=== PATIENT | female | born 2000 | race Caucasian/White ===

== ENCOUNTER 2022-07-09 08:44 | Emergency (ER) | payer OTHER, SELFPAY ==
--- NOTE | 2022-07-09 08:48 | ED.URI ---
HPI - URI/Sore Throat General Stated Complaint: Sore throat Time Seen by Provider: 07/09/22 08:49 Source: patient and RN notes reviewed History of Present Illness HPI Narrative: Patient is a 22-year-old female presents the urgent care with complaints of a sore/scratchy throat that started on . Patient states he got worse last night. Denies of any fever, chills, nausea, vomiting or exposures. Patient states has been taking Merry. No other acute complaints. No acute distress noted. Patient aware of the plan of care. Some parts of this dictation were generated by voice recognition software and may contain typographical and/or grammatical inaccuracies. Related Data Home Medications Medication Instructions Recorded Confirmed No Home Medications 07/09/22 07/09/22 Allergies Allergy/AdvReac Type Severity Reaction Status Date / Time No Known Allergies Allergy Verified 07/09/22 09:01 Review of Systems Review of Systems: CONSTITUTIONAL: Denies fever, chills, or sweats. EYES: Denies visual changes, redness, or discharge. ENT: Denies rhinorrhea, congestion, otalgia. Reports of sore throat CARDIOVASCULAR: Denies chest pain, palpitations, or edema. RESPIRATORY: Denies cough or dyspnea. GASTROINTESTINAL: Denies abdominal pain, nausea, vomiting, or diarrhea. GENITOURINARY: Denies dysuria or hematuria. SKIN: Denies rash or itching. MUSCULOSKELETAL: Denies back pain, joint pain, or myalgia. NEUROLOGIC: Denies headache, numbness, or weakness. All other systems reviewed are negative, except as documented in HPI. PMFSH Comments At the time of my signature, I reviewed and agree with the nursing past medical, surgical, social, and family history. There is no relevant family history pertinent to the patient complaint. Exam Narrative: GENERAL: This is a well-nourished, well-developed patient, in no apparent distress. HEAD: normocephalic, atraumatic. EYES: PERRL. Sclera clear/white. Vision is grossly intact. EARS: External ears normal, auditory canals clear and without drainage, TMs normal without perforation. Hearing grossly intact. NOSE: External nose normal with no obvious nasal discharge, nares without redness, no rhinorrhea. THROAT: Mucous membranes moist, posterior pharynx clear. Mild postnasal drainage NECK: Neck supple, non-tender without lymphadenopathy, masses or thyromegaly. CARDIOVASCULAR: Regular rate and rhythm without murmurs, gallops, or rubs. RESPIRATORY: Clear to auscultation. Breath sounds equal bilaterally. No wheezes, rales, or rhonchi. SKIN: warm, intact with no suspicious lesions or rash, good texture and turgor. NEURO: awake, alert, and oriented to person, place and time. There were no obvious focal neurologic abnormalities. EXTREMITIES: No clubbing, cyanosis, or edema. Course Course Level of Care: Express Care Visit Vital Signs Vital signs: Vital Signs Temperature 97.9 F 07/09/22 08:49 Pulse Rate 81 07/09/22 08:49 Respiratory Rate 16 07/09/22 08:49 Blood Pressure 123/71 07/09/22 08:49 Pulse Oximetry 99 07/09/22 08:49 Oxygen Delivery Room Air 07/09/22 08:49 Temperature 97.9 F 07/09/22 08:49 Pulse Rate 81 07/09/22 08:49 Respiratory Rate 16 07/09/22 08:49 Blood Pressure 123/71 07/09/22 08:49 Pulse Oximetry 99 07/09/22 08:49 Oxygen Delivery Room Air 07/09/22 08:49 Reviewed MDM - URI/Sore Throat MDM Narrative Medical decision making narrative: Reviewed lab results with the patient. She is aware that strep swab was negative. Educated patient on culture we will call within 72 hours if culture is positive and antibiotics are necessary. Advised the patient to continue her Merry and use Benadryl and Flonase prior to bedtime. Do not sleep with the windows open or fan on. Use a humidifier at night. Use Tylenol/ibuprofen as needed. Stay on the antihistamines for at least the next 14 days. Follow-up with your PCP within 2 to 5 days or for worsening
[2022-07-09 08:49] VITALS: BP 123/71; PULSE 81; RESP 16; TEMP 36.6; O2SAT 99
== END 2022-07-09 09:05 | disposition home or self-care (01) ==
PROVIDERS: Emergency Provider Nurse Practitioner Family
DX: J02.9 Acute pharyngitis, unspecified (principal)
CPT/HCPCS: 87081; 87880; 99213; G0463

== ENCOUNTER 2022-09-23 16:38 | Emergency (ER) | payer OTHER, SELFPAY ==
--- NOTE | 2022-09-23 16:41 | ED.URI ---
HPI - URI/Sore Throat General Chief Complaint: Upper Respiratory Infection Stated Complaint: cold flu Time Seen by Provider: 09/23/22 16:41 Source: patient and RN notes reviewed History of Present Illness HPI Narrative: patient is a 22-year-old female who presents to the Urgent Care with complaints of body aches, fever, nasal congestion and runny nose. Patient states that started 2 days ago and she has been taking Mucinex and NyQuil. 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 No other acute complaints. No acute distress noted. Patient aware of the plan of care. Some parts of this dictation were generated by voice recognition software and may contain typographical and/or grammatical inaccuracies. Related Data Home Medications Medication Instructions Recorded Confirmed fexofenadine 180 mg tablet 180 mg PO DAILY 09/23/22 09/23/22 Allergies Allergy/AdvReac Type Severity Reaction Status Date / Time No Known Allergies Allergy Verified 09/23/22 17:05 Review of Systems Review of Systems: CONSTITUTIONAL: Reports of fever, chills EYES: Denies visual changes, redness, or discharge. ENT: reports rhinorrhea and nasal congestion CARDIOVASCULAR: Denies chest pain, palpitations, or edema. RESPIRATORY: reports of cough without dyspnea GASTROINTESTINAL: Denies abdominal pain, nausea, vomiting, or diarrhea. GENITOURINARY: Denies dysuria or hematuria. SKIN: Denies rash or itching. MUSCULOSKELETAL: Denies back pain, joint pain. Reports body aches NEUROLOGIC: Denies headache, numbness, or weakness. All other systems reviewed are negative, except as documented in HPI. PMFSH Comments At the time of my signature, I reviewed and agree with the nursing past medical, surgical, social, and family history. There is no relevant family history pertinent to the patient complaint. Exam Narrative: GENERAL: This is a well-nourished, well-developed patient, appears fatigued HEAD: normocephalic, atraumatic. EYES: PERRL. Sclera clear/white. Vision is grossly intact. EARS: External ears normal, auditory canals clear and without drainage, TMs normal without perforation. Hearing grossly intact. NOSE: External nose normal with no obvious nasal discharge, nares without redness, clear to yellow rhinorrhea THROAT: Mucous membranes moist, posterior pharynx clear. moderate postnasal drainage NECK: Neck supple, CARDIOVASCULAR: Regular rate and rhythm without murmurs, gallops, or rubs. RESPIRATORY: Clear to auscultation. Breath sounds equal bilaterally. No wheezes, rales, or rhonchi. SKIN: warm, intact with no suspicious lesions or rash, good texture and turgor. NEURO: awake, alert, and oriented to person, place and time. There were no obvious focal neurologic abnormalities. EXTREMITIES: No clubbing, cyanosis, or edema. Course Course Level of Care: Express Care Visit Vital Signs Vital signs: Vital Signs Temperature 100.5 F H 09/23/22 16:54 Pulse Rate 115 H 09/23/22 16:54 Respiratory Rate 18 09/23/22 16:54 Blood Pressure 148/88 H 09/23/22 16:54 Pulse Oximetry 99 09/23/22 16:54 Oxygen Delivery Room Air 09/23/22 16:54 Temperature 100.5 F H 09/23/22 16:54 Pulse Rate 115 H 09/23/22 16:54 Respiratory Rate 18 09/23/22 16:54 Blood Pressure 148/88 H 09/23/22 16:54 Pulse Oximetry 99 09/23/22 16:54 Oxygen Delivery Room Air 09/23/22 16:54 reviewed- Patient is informed that they may have pre-hypertension or hypertension based on a blood pressure reading in the department. I recommend the patient call the primary care provider listed on their discharge instructions or a physician of their choice this week to arrange follow-up for further evaluation of possible pre-hypertension or hypertension. MDM - URI/Sore Throat MDM Narrative Medical decision making narrative: reviewed lab results with the patient. She is aware the flu swab was positive for influenza A. Advis
[2022-09-23 16:54] VITALS: BP 148/88; PULSE 115; RESP 18; TEMP 38.1; O2SAT 99
== END 2022-09-23 17:13 | disposition home or self-care (01) ==
PROVIDERS: Emergency Provider Nurse Practitioner Family
DX: J11.1 Influenza due to unidentified influenza virus with other respiratory manifestations (principal)
CPT/HCPCS: 87804; 99213; G0463

== ENCOUNTER 2023-05-27 14:39 | Emergency (ER) | payer OTHER, SELFPAY ==
[2023-05-27 14:47] VITALS: BP 144/74; PULSE 99; RESP 18; TEMP 36.8; O2SAT 98
--- NOTE | 2023-05-27 15:26 | ED.URI ---
HPI - URI/Sore Throat General Chief Complaint: Upper Respiratory Infection Stated Complaint: Sinus and Ear Problems Source: patient and RN notes reviewed History of Present Illness HPI Narrative: 23 yo F presents to urgent care with complaints of congestion, pressure in her forehead, and ears x 6 days. Pt states her symptoms have been intermittent. Denies any fevers, chills, chest pain, SOB, vomiting, or diarrhea. Denies any sore throat or ear pain. Pt has been taking her Merry and Afrin. Related Data Home Medications Medication Instructions Recorded Confirmed fexofenadine 180 mg tablet 180 mg PO DAILY 09/23/22 05/27/23 Allergies Allergy/AdvReac Type Severity Reaction Status Date / Time No Known Allergies Allergy Verified 05/27/23 14:55 Review of Systems Review of Systems: Pertinent positives and pertinent negatives per HPI. PMFSH Comments At the time of my signature, I reviewed and agree with the nursing past medical, surgical, social, and family history. There is no relevant family history pertinent to the patient complaint. Exam Narrative: GENERAL: This is a well-nourished, well-developed patient, in no apparent distress. HEAD: normocephalic, atraumatic. EYES: Sclera clear/white. Vision is grossly intact. EARS: External ears normal, auditory canals clear and without drainage, Left TM normal without perforation. Hearing grossly intact. Right TM bulging and erythremic. NOSE: External nose normal with no obvious nasal discharge, nares without redness, no rhinorrhea. THROAT: Mucous membranes moist, posterior pharynx clear. NECK: Neck supple, non-tender without lymphadenopathy, masses or thyromegaly. CARDIOVASCULAR: Regular rate and rhythm without murmurs, gallops, or rubs. RESPIRATORY: Clear to auscultation. Breath sounds equal bilaterally. No wheezes, rales, or rhonchi. SKIN: warm, intact with no suspicious lesions or rash, good texture and turgor. NEURO: awake, alert, and oriented to person, place and time. There were no obvious focal neurologic abnormalities. Course Course Level of Care: Express Care Visit Vital Signs Vital signs: Vital Signs Temperature 98.2 F 05/27/23 14:47 Pulse Rate 99 05/27/23 14:47 Respiratory Rate 18 05/27/23 14:47 Blood Pressure 144/74 H 05/27/23 14:47 Pulse Oximetry 98 08/19/23 14:47 Oxygen Delivery Room Air 05/27/23 14:47 Temperature 98.2 F 05/27/23 14:47 Pulse Rate 99 05/27/23 14:47 Respiratory Rate 18 05/27/23 14:47 Blood Pressure 144/74 H 05/27/23 14:47 Pulse Oximetry 98 05/27/23 14:47 Oxygen Delivery Room Air 05/27/23 14:47 reviewed MDM - URI/Sore Throat MDM Narrative Medical decision making narrative: Viral illness may last between 7-12days; antibiotic is NOT recommended at this time. Recommend antihistamine such as Benadryl at night time and Claritin/Zyrtec/Merry during the day. Increase your Vitamin C intake. Steam from hot showers help with congestion. Also, recommend symptomatic treatment includes: rest, fluids, increase humidity of the air at home with a humidifier in the bedroom. Recommend Acetaminophen or nonsteroidal anti-inflammatory agents(NSAIDs) as directed in the bottle to reduce fever and/pain/headache. Avoid smoking/second-hand smoke. Limit visits to areas with large crowds. Frequent hand washing or hand real estate rep is one of the best ways to prevent spread of infection. Take antibiotics as directed. May given ibuprofen and/or Tylenol as needed for pain and/or fever. Follow up with primary care provider in 7-10 days to have ear rechecked. Differential Diagnosis Differential diagnosis: Likely upper respiratory infection, otitis media and sinusitis Critical Care Time Critical Care Time Critical Care Time: No Discharge Plan Discharge Clinical Impression: Otitis media Qualifiers: Otitis media type: unspecified Chronicity: acute Qualified Code(s): H66.90 - Otitis media, unspecified, un
== END 2023-05-27 15:30 | disposition home or self-care (01) ==
PROVIDERS: Emergency Provider Nurse Practitioner Family
DX: H66.91 Otitis media, unspecified, right ear (principal); J06.9 Acute upper respiratory infection, unspecified
CPT/HCPCS: 99213; G0463

== ENCOUNTER → 2023-09-13 08:05 | Outpatient (CLI) | payer OTHER, SELFPAY ==
--- NOTE | ~2023-09-13 | US_ITS ---
US thyroid INDICATION: Nontoxic goiter TECHNIQUE: Real-time sonographic images of the thyroid gland were obtained. COMPARISON: No prior studies for comparison. FINDINGS: The right thyroid lobe measures 4.6 x 1.9 x 1.3 cm. The left thyroid lobe measures 3.1 x 1 .3 x 1.1 cm. There is normal echotexture and echogenicity throughout the thyroid gland. There are sma ll subcentimeter cysts in the thyroid gland. No solid masses.. Normal vascular flow is present. IMPRESSION: 1. Unremarkable thyroid gland. No suspicious masses identified. Reviewed, dictated and finalized at location B. 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
== END ==
PROVIDERS: PCP Nurse Practitioner Adult Health; Visit Provider Nurse Practitioner Adult Health
DX: E04.9 Nontoxic goiter, unspecified (principal)
CPT/HCPCS: 76536

== ENCOUNTER 2023-09-13 08:34 | Outpatient (CLI) | payer OTHER, SELFPAY ==
[2023-09-13 12:33] LABS: Hematocrit 44.9 % (37.0-47.0); Hemoglobin 14.2 g/dL (12.0-15.0); Mean Corpuscular HGB Conc 31.6 g/dl (32-36); Mean Corpuscular Hemoglobin 30.3 pg (26-34); Mean Corpuscular Volume 95.7 fl (80-100); Mean Platelet Volume 12.7 fl (7.4-10.4); Platelet Count Result 235 k/mm3 (150-375); Red Blood Count 4.69 M/mm3 (4.2-5.4); White Blood Count 8.6 K/mm3 (4.5-10.0)
[2023-09-13 12:49] LABS: Alanine Aminotransferase 30 U/L (6-35); Albumin Level 4.6 g/dL (3.5-5.1); Alkaline Phosphatase 63 U/L (38-126); Anion Gap 10 mmol/L (8-16); Aspartate Amino Transferase 46 U/L (14-36); Bilirubin,Total 0.6 mg/dL (0.2-1.3); Blood Urea Nitrogen 6 mg/dL (7-17); Calcium 9.1 mg/dL (8.4-10.2); Carbon Dioxide 27 mmol/L (22-30); Chloride 102 mmol/L (98-107); Cholesterol 173 mg/dL (0-200); Estimated Glomerular Filt Rate > 60; Glucose 90 mg/dL (65-110); HDL Direct 56 mg/dL; Sodium 139 mmol/L (137-145); Triglycerides 85 mg/dL (<150)
[2023-09-13 13:00] LABS: LDL Cholesterol Direct 92 mg/dL
[2023-09-13 15:43] LABS: Hemoglobin A1C 5.2 % (<5.7)
[2023-09-16 05:14] LABS: Thyroid Peroxidase Antibodies <1 IU/mL (<9)
== END 2023-09-13 08:35 | disposition home or self-care (01) ==
PROVIDERS: PCP Nurse Practitioner Adult Health; Visit Provider Nurse Practitioner Adult Health
DX: E04.9 Nontoxic goiter, unspecified (principal); E66.9 Obesity, unspecified; Z13.9 Encounter for screening, unspecified
CPT/HCPCS: 36415; 76536; 80053; 80061; 83036; 84439; 84443; 85027; 86376

== ENCOUNTER 2024-04-08 14:00 | Outpatient (CLI) | payer OTHER, SELFPAY ==
--- NOTE | ~2024-04-08 | XR_ITS ---
EXAM: XR knee RT 3V DATE: 04/08/2024 14:21 HISTORY: popping injury one day ago, medial and lateral rt knee pain . COMPARISON: None available. FINDINGS: Normal mineralization. No fracture or dislocation. No lytic or blastic lesion. Mild medial compartment osteoarthritis. No erosion or periosteal change. Soft tissues within normal limits. IMPRESSION: No acute osseous finding in the right knee. Reviewed, dictated and finalized at location K.
== END 2024-04-08 14:01 | disposition home or self-care (01) ==
LOC: ANHASCIMG 14:01 → ANHBWCIMG 14:02
PROVIDERS: PCP Nurse Practitioner Adult Health; Visit Provider Nurse Practitioner Adult Health
DX: M25.561 Pain in right knee (principal)
CPT/HCPCS: 73562

== ENCOUNTER 2024-07-21 16:10 | Emergency (ER) | payer OTHER, SELFPAY ==
[2024-07-21 16:15] VITALS: BP 123/76; PULSE 63; RESP 16; TEMP 36.9; O2SAT 99
--- NOTE | 2024-07-21 20:36 | ED_ITS ---
HPI - URI/Sore Throat General Chief Complaint: Upper Respiratory Infection Stated Complaint: sinus/ear inf Time Seen by Provider: 07/21/24 16:18 Source: patient, RN notes reviewed and old records reviewed Mode of arrival: ambulatory Limitations: no limitations History of Present Illness HPI Narrative: 24-year-old female to Express Care with complaint cough and bilateral ear pain and fullness since Monday. Patient rating ear pain 6/10 currently. Patient has not attempted to treat at home with [id number] medications. Patient states that it sounds like she has her head under water. Patient sitting co mfortably in exam room in no acute distress. Related Data Allergies Allergy/AdvReac Type Severity Reaction Status Date / Time No Known Allergies Allergy Verified 07/21/24 16:33 Review of Systems Review of Systems: All systems reviewed & are unremarkable except as noted in HPI and below Constitutional: Constitutional: Reports as per HPI, Denies body ache(s), Denies chills, Denies fatigue, Denies fever(s) and Denies poor appetite Eyes: Eyes: Reports no additional eye complaints ENT: Reports as per HPI and Reports otalgia Cardiovascular: Cardiovascular: Reports no additional cardiovascular complaints, Denies chest pain and Denies dyspnea Respiratory: Respiratory: Reports no additional respiratory complaints, Reports cough and Denies dyspnea Musculoskeletal: Musculoskeletal: Reports no additional musculoskeletal complaints Neurologic: Reports system reviewed and no additional complaints, except as documented Psychiatric: Psychiatric: Reports no additional psychiatric complaints PMFSH Past Medical History Medical History Allergies Chronic GERD Family History Family History Father Hypertension Mother Asthma Grandparent Diabetes mellitus Social History Social History Smoking status: Never smoker Alcohol intake: current Alcohol use details: Every other week Substance use: never Lack of Transportation: No Lack of Food: Never True Current Housing: I Have Housing Concerned About Future Housing: No Difficulty Paying Gas/Electric Bills: No Difficulty Paying for Meds: No Currently Unemployed: No Education: Bachelor's Degree Difficulty w/ Childcare or Family Care: No Living arrangements: alone Additional occupation/education comments: [employer] Gender identity (if verbalized by the patient): Female Agree to blood products: Yes Comments At the time of my signature, I reviewed and agree with the nursing past medical, surgical, social, and family history. There is no relevant family history pertinent to the patient complaint. Exam Const: General: cooperative, healthy appearing, comfortable, no acute distress, alert, tired appearing and well nourished Nutritional Appearance: well nourished Orientation/consciousness: patient oriented x3 Limitations: no limitations HENMT: Head: normal to inspection Ears: external ears normal and TM abnormal dull, erythematous, with fluid behind the TM and with loss of landmarks Face/Nose/Sinus: Normal external nose present, Normal nares present, normal facial exam, No erythema and No edema Face and sinus: normal facial exam, no erythema and no edema Mouth: Yes Normal oral and palatal mucosa present Throat: postnasal drainage Eyes: General: appearance normal, both eyes and all related structures Neck: Neck: normal visual inspection, full ROM and no meningeal signs Lymphatic: no lymphadenopathy noted and no lymphedema noted Chest: Chest palpation & inspection: normal inspection of the chest Resp: Effort & Inspection: normal respiratory effort and able to speak in comp lete sentences Auscultation: clear to auscultation bilaterally Cardio: Jugular venous distension: no JVD Rate: regular rate Rhythm: regular rhythm Back/Spine/Pelvis: Cervical Spine: cervical ROM normal Skin: General skin exam: normal color, no rashes or lesions noted and turgor normal Neuro: General: patient oriented x3, gait normal, moves all extremities and no meningeal signs Speech: normal speech Gait exam (Neuro): Normal gait present Extrem: General: normal to inspection, full ROM and capillary refill normal Psych: Appearance: grossly normal and well kempt Course Course Emergency Course: Some parts of this dictation were generated by voice recognition software and may contain typographical and/or grammatical inaccuracies. Level of Care: Express Care Visit Vital Signs Vital signs: Vital Signs Temperature 36.9 C 07/21/24 16:15 Pulse Rate 63 07/21/24 16:15 Respiratory Rate 16 07/21/24 16:15 Blood Pressure 123/76 07/21/24 16:15 Pulse Oximetry 99 07/21/24 16:15 Oxygen Delivery Room Air 07/21/24 16:15 Temperature 36.9 C 10/13/24 16:15 Pulse Rate 63 07/21/24 16:15 Respiratory Rate 16 07/21/24 16:15 Blood Pressure 123/76 07/21/24 16:15 Pulse Oximetry 99 07/21/24 16:15 Oxygen Delivery Room Air 07/21/24 16:15 reviewed MDM - URI/Sore Throat MDM Narrative Medical decision making narrative: 24-year-old female to Express Care with complaint cough and bilateral ear pain and fullness since Monday. Patient rating ear pain 6/10 currently. Patient has not attempted to treat at home with [id number] medications. Patient states that it sounds like she has her head under water. Patient sitting comfortably in exam room in no acute distress. On exam, bilateral TMs are dull, erythematous, fluid behind TM, loss of landmark. Posterior oropharynx with postnasal drainage. Findings consistent with bilateral otitis media. Patient is sitting comfortably in exam room nontoxic in appearance. Patient appropriate for outpatient treatment and follow-up. Discharge instructions reviewed with patient, as well as provided in writing per nursing staff. The instructions also include specific and strict return/GO TO THE ER as well as f/u information. All questions have been answered, and the patient deny any further questions with discharge and discharge plan. Some parts of this dictation were generated by voice recognition software and may contain typographical and/or grammatical inaccuracies. Differential Diagnosis Differential diagnosis: Likely upper respiratory infection, croup, otitis media, sinusitis, viral infection, bronchitis, influenza and pharyngitis Discharge Plan Discharge Clinical Impression: Bilateral acute otitis media Patient Disposition: Home, Self-Care Condition: Stable Instructions: Ear Infection (AC) Additional Instructions: -Alternate Tylenol and Motrin per package directions for fever or pain. -Antihistamine medication such as Benadryl at night and Zyrtec/Claritin/Merry during the day can help improve symptoms. -Use Flonase twice a day for 5 days then daily to help reduce the inflammation and dry up your sinuses. -You can also use Sudafed or Mucinex. Be sure to drink plenty of water with these medications at least 8 ounces with every dose and it is important to drink 8 to 10 glasses of water per day. Water is a natural decongestant -Eat and drink things that are easy to swallow, like tea or soup, or popsicles. -Oral rinses such as: Salt water gargles and/or may use topical anesthetic (eg. Chloraseptic spray) or lozenges to relieve dryness or throat pain). -Frequent hand washing or hand rehabilitation services manager is one of the best ways to prevent spread of infection. -Using a vaporizer or humidifier at night will also help thin secretions and help with coughing up phlegm. -Follow up with primary care provider in 2-3 days if condition is not improving; or seek ER visit if you have trouble breathing, cannot drink enough fluids, have muffled voice, difficulty opening your mouth, or severe swelling. Prescriptions: New fluticasone propionate [24 Hour Allergy Relief] 50 mcg/actuation spray,suspension 1 spray intranasal DAILY Qty: 16 0RF Rx Instructions: administer into each nostril BID 5 days; once daily thereafter prednisone 20 mg tablet See Rx Instructions .ROUTE .COMPLEX Qty: 9 0RF Rx Instructions: Take 40mg x3 days, 20mg x3 days. Take in the morning. amoxicillin 875 mg tablet 875 mg PO Q12H Qty: 20 0RF Follow-up/Referrals: Lisa Sharma APRN [Primary Care Provider] -
== END 2024-07-21 17:05 | disposition home or self-care (01) ==
PROVIDERS: Emergency Provider Nurse Practitioner Family; PCP Nurse Practitioner Adult Health
DX: H66.93 Otitis media, unspecified, bilateral (principal); K21.9 Gastro-esophageal reflux disease without esophagitis
CPT/HCPCS: 99213; G0463

== ENCOUNTER 2024-08-01 16:22 | Emergency (ER) | payer OTHER, SELFPAY ==
[2024-08-01 16:34] VITALS: BP 141/76; PULSE 88; RESP 16; TEMP 36.4; O2SAT 99
--- NOTE | 2024-08-01 20:10 | ED.URI ---
HPI - URI/Sore Throat General Chief Complaint: Upper Respiratory Infection Stated Complaint: covid last wk/sinus & Chest congestion Time Seen by Provider: 08/01/24 16:38 Source: patient, RN notes reviewed and old records reviewed Mode of arrival: ambulatory Limitations: no limitations History of Present Illness HPI Narrative: 24-year-old female to Express Care with complaint of sinus congestion and pressure, ear fullness and chest tightness for 2 days. Patient reports that she is post COVID and that she was seen here on July 21 for a double ear infection and sinus infection. Patient states she completed entire course of antibiotic treatment. Patient denies fever, cough, allergies. Patient able to tolerate fluids by mouth. Patient resting comfortably in exam room in no acute distress. Respirations even nonlabored. Related Data Allergies Allergy/AdvReac Type Severity Reaction Status Date / Time No Known Allergies Allergy Verified 07/21/24 16:33 Review of Systems Review of Systems: All systems reviewed & are unremarkable except as noted in HPI and below Constitutional: Constitutional: Reports no additional constitutional complaints Eyes: Eyes: Reports no additional eye complaints ENT: Reports as per HPI, Reports otalgia ( Fullness) and Reports sinus pressure Cardiovascular: Cardiovascular: Reports no additional cardiovascular complaints, Denies chest pain and Denies dyspnea Respiratory: Respiratory: Reports as per HPI, Denies cough, Denies dyspnea and Reports other ( chest tightness) Musculoskeletal: Musculoskeletal: Reports no additional musculoskeletal complaints Neurologic: Reports system reviewed and no additional complaints, except as documented Psychiatric: Psychiatric: Reports no additional psychiatric complaints [facility] Past Medical History Medical History Allergies Chronic GERD Family History Family History Father Hypertension Mother Asthma Grandparent Diabetes mellitus Social History Social History Smoking status: Never smoker Alcohol intake: current Alcohol use details: Every other week Substance use: never Lack of Transportation: No Lack of Food: Never True Current Housing: I Have Housing Concerned About Future Housing: No Difficulty Paying Gas/Electric Bills: No Difficulty Paying for Meds: No Currently Unemployed: No Education: Bachelor's Degree Difficulty w/ Childcare or Family Care: No Living arrangements: alone Additional occupation/education comments: [employer] Gender identity (if verbalized by the patient): Female Agree to blood products: Yes Comments At the time of my signature, I reviewed and agree with the nursing past medical, surgical, social, and family history. There is no relevant family history pertinent to the patient complaint. Exam Const: General: cooperative, healthy appearing, no acute distress, well developed, alert, well groomed and well nourished Nutritional Appearance: well nourished Orientation/consciousness: patient oriented x3 Limitations: no limitations HENMT: Head: normal to inspection Ears: external ears normal and TM abnormal dull on the right, erythematous on the right, with fluid behind the TM on the right and with loss of landmarks on the right Face/Nose/Sinus: Normal external nose present, Normal nares present, normal facial exam, No erythema and No edema Face and sinus: normal facial exam, no erythema and no edema Mouth: Yes Normal oral and palatal mucosa present Throat: postnasal drainage ( purulent) Eyes: General: appearance normal, both eyes and all related structures Neck: Neck: normal visual inspection, full ROM and no meningeal signs Lymphatic: no lymphadenopathy noted and no lymphedema noted Chest: Chest palpation & inspection: normal inspection of the chest Resp: Effort & Inspection: normal respiratory effort and able to speak in complete sentences Auscultation: clear to auscultation bilaterally Cardio: Jugular venous distension: no JVD Rate: regular rate Rhythm: regular rhythm Back/Spine/Pelvis: Cervical Spine: cervical ROM normal Skin: General skin exam: normal color, no rashes or lesions noted and turgor normal Neuro: General: patient oriented x3, gait normal, moves all extremities and no meningeal signs Speech: normal speech Gait exam (Neuro): Normal gait present Extrem: General: normal to inspection, full ROM and capillary refill normal Psych: Appearance: grossly normal and well kempt Course Course Emergency Course: Some parts of this dictation were generated by voice recognition software and may contain typographical and/or grammatical inaccuracies. Level of Care: Express Care Visit Vital Signs Vital signs: Vital Signs Temperature 36.4 C 08/01/24 16:34 Pulse Rate 88 08/01/24 16:34 Respiratory Rate 16 08/01/24 16:34 Blood Pressure 141/76 H 08/01/24 16:34 Pulse Oximetry 99 08/01/24 16:34 Oxygen Delivery Room Air 08/01/24 16:34 Temperature 36.4 C 08/01/24 16:34 Pulse Rate 88 08/01/24 16:34 Respiratory Rate 16 08/01/24 16:34 Blood Pressure 141/76 H 08/01/24 16:34 Pulse Oximetry 99 08/01/24 16:34 Oxygen Delivery Room Air 08/01/24 16:34 reviewed MDM - URI/Sore Throat MDM Narrative Medical decision making narrative: 24-year-old female to Express Care with complaint of sinus congestion and pressure, ear fullness and chest tightness for 2 days. Patient reports that she is post COVID and that she was seen here on July 21 for a double ear infection and sinus infection. Patient states she completed entire course of antibiotic treatment. Patient denies fever, cough, allergies. Patient able to tolerate fluids by mouth. Patient resting comfortably in exam room in no acute distress. Respirations even nonlabored. on exam, right TM erythematous with fluid, dull, loss of landmarks. Right EAC tenderness. Posterior oropharynx with purulent postnasal drainage. Findings consistent with right otitis media. Exam otherwise unremarkable. Patient is sitting comfortably in exam room nontoxic in appearance. Patient appropriate for outpatient treatment and follow-up. Discharge instructions reviewed with patient, as well as provided in writing per nursing staff. The instructions also include specific and strict return/GO TO THE ER as well as f/u information. All questions have been answered, and the patient deny any further questions with discharge and discharge plan. Some parts of this dictation were generated by voice recognition software and may contain typographical and/or grammatical inaccuracies. Differential Diagnosis Differential diagnosis: Likely upper respiratory infection, croup, otitis media, sinusitis, viral infection, bronchitis, influenza and pharyngitis Discharge Plan Discharge Clinical Impression: Acute right otitis media Patient Disposition: Home, Self-Care Condition: Stable Instructions: Ear Infection (GEN) Additional Instructions: -Alternate Tylenol and Motrin per package directions for fever or pain. -Antihistamine medication such as Benadryl at night and Zyrtec/Claritin/Merry during the day can help improve symptoms. -Use Flonase twice a day for 5 days then daily to help reduce the inflammation and dry up your sinuses. -You can also use Sudafed or Mucinex. Be sure to drink plenty of water with these medications at least 8 ounces with every dose and it is important to drink 8 to 10 glasses of water per day. Water is a natural decongestant -Eat and drink things that are easy to swallow, like tea or soup, or popsicles. -Oral rinses such as: Salt water gargles and/or may use topical anesthetic (eg. Chloraseptic spray) or lozenges to relieve dryness or throat pain). -Frequent hand washing or hand lab asst is one of the best ways to prevent spread of infection. -Using a vaporizer or humidifier at night will also help thin secretions and help with coughing up phlegm. -Follow up with primary care provider in 2-3 days if condition is not improving; or seek ER visit if you have trouble breathing, cannot drink enough fluids, have muffled voice, difficulty opening your mouth, or severe swelling. Prescriptions: New amoxicillin-pot clavulanate 875-125 mg tablet 1 tablet PO Q12H Qty: 20 0RF Follow-up/Referrals: Lisa Sharma APRN [Primary Care Provider] -
== END 2024-08-01 17:15 | disposition home or self-care (01) ==
PROVIDERS: Emergency Provider Nurse Practitioner Family; PCP Nurse Practitioner Adult Health
DX: H66.91 Otitis media, unspecified, right ear (principal); K21.9 Gastro-esophageal reflux disease without esophagitis; Z86.16 Personal history of COVID-19
CPT/HCPCS: 99213; G0463

== ENCOUNTER 2025-04-16 09:02 | Outpatient (CLI) | payer OTHER, SELFPAY ==
--- OUTSIDE RECORDS SUMMARY | 2025-04-16 09:10 | XMS_ITS | Clinical Summary ---
Author Organization [facility] [address] [place] [address] Care Team Providers Care Assistant Store Manager Sales Name Role Phone No, Physician Primary Care Provider [phone] Allergies No known active allergies Medications omeprazole (PriLOSEC) 40 mg capsule Take 1 capsule (40 mg total) by mouth daily 4 Active fexofenadine (JOSE) 60 mg tablet Take by mouth Active methylPREDNISol one (MEDROL DOSEPACK) 4 mg Dosepack FOLLOW PACKAGE DIRECTIONS 4 Active Active Problems Problem Noted Date Diagnosed Date Severe obesity (BMI >= 40) 04/10/2024 Surgical History Surgery Date Site/Laterality Comments TONSILLECTOMY 10/09/2004 - 10/08/2005 WISDOM TOOTH EXTRACTION 10/09/2016 - 10/08/2017 Medical History Medical History Date Comments MTHFR mutation Family History Medical History Relation Name Comments Hypertension Father Skin cancer Maternal Grandfather Diabetes Maternal Grandmother Other mutations Mother MTHFR Liver cancer Paternal Grandfather Alzheimer's disease Paternal Grandmother Relation Name Status Comments Father Maternal Grandfather Maternal Grandmother Mother Paternal Grandfather Paternal Grandmother Social History Tobacco Use Types Packs/Day Years Used Date Smoking Tobacco: Never Smokeless Tobacco: Never Personal Safety Answer Date Recorded Getting School Help Needed Not on file 03/11 Comments No Sex and Gender Information Value Date Recorded Sex Assigned at Not on file Legal Sex Female 9:46 AM CDT Gender Identity Not on file Sexual Orientation Not on file Occupation Industry Job Start Date Job End Date Not on file Not on file Not on file Not on file Obstetrics History Para Term AB IAB SAB Ectopic Multiple Livin g Live Births 0 0 0 0 0 0 0 0 0 0 0 Last Filed Vital Signs Vital Sign Reading Time Taken Comments Blood Pressure 116/60 04/10/2024 1:24 PM CDT Pulse - - Temperature - - Respiratory Rate - - Oxygen Saturation - - Inhaled Oxygen Concentration - - Weight 100.8 kg (222 lb 3.2 oz) 04/10/2024 1:24 PM CDT Height 157.5 cm (5' 2) 04/10/2024 1:24 PM CDT Body Mass Index 40.64 04/10/2024 1:24 PM CDT Plan of Treatment Health Maintenance Due Date Last Done Comments Depression Screening 2000 Hepatitis C Screening 2000 Covid-19 Vaccine ( season) 2024 06/24/2022, 08/27/2021, 12/09/2020, Additional history exists Cervical Cancer Screening 04/10/2025 04/10/2024 Regular Well Visit/Exam 18-64 04/10/2025 04/10/2024 Influenza Vaccine (#1) 2025 , 08/19/2021, 08/08/2020, Additional history exists DTaP/Tdap/Td Vaccine (8 - Td or Tdap) 12/08/2031 12/07/2021, 04/27/2009, 04/22/2003, Additional history exists Hepatitis B Screening Completed 1998 , 1998, 1998 Varicella Vaccines Completed 04/27/2009, 07/27/1999 HPV Vaccines Completed 10/12/2012, 01/2012, 04/10/2012 Pneumococcal vaccine <65 Aged Out No longer eligible based on patient's age to complete this topic Procedures Procedure Name Priority Date/Time Associated Diagnosis Comments PAP WITH REFLEX TO HIGH RISK HPV Routine 04/10/2024 7:40 AM CDT from Last 3 Months or Most Recently Relevant to Health Maintenance Results * Pap with reflex to High Risk HPV and Genotyping (Cytology Component) (04/10/2024 7:40 AM CDT) Pap test 04/10/2024 7:40 AM CDT 04/10/2024 7:40 AM CDT Narrative 04/16/2024 3:40 PM CDT [facility] Department of Pathology [address] [place], [place] [id number] Final Report Note to Patients: This report may contain a detailed description of human tissue sent by a health care provider to the laboratory for pathologic evaluation. The content of this report is essential for diagnosis and may provide important critical findings. This information may be unfamiliar to patients to review without a medical professional present. It is advised that the patient review this report in the presence of a health care provider who can answer questions and explain the details. Patient Name: PETER JUNG Address: [address] [place] [address] Gender: F : 2000 (Age: 24) Service: Location: [facility] #: [id number] Patient Type: [facility] SPECIMEN Taken: 04/10/2024 Received: 04/10/2024 Accessioned:: 04/12/2024 Reported: 04/16/2024 Physician(s): MD Mariajose Holloway MD Diagnosis: SOURCE OF SPECIMEN Imaged Thinprep Pap Test w/ Reflex HPV - Environmental Protection Officer Cytologic Material: STATEMENT OF ADEQUACY - Satisfactory for evaluation; endocervical/transformation zone component present GENERAL CATEGORIZATION: - Negative for intraepithelial lesion or malignancy INTERPRETATION: - Fungal organisms present, morphologically consistent with ginger species RUFINA Newell(ASCP) Report Electronically Reviewed and Signed Out By RUFINA Newell(ASCP) 04/16/2024 15:40:26Specimen(s) Received: A: Imaged Thinprep Pap Test w/ Reflex HPV - Environmental Protection Officer Cytologic Material Clinical History: Last Menstrual Period: 03/15/24 Menstrual History: Regular Cycles The Pap test is a screening test used to aid in the detection of cervical cancer and its precursors. It should not be the sole means by which malignant and premalignant lesions are diagnosed. Both false negative and false positive results may occur. It also has poor sensitivity for the detection of endometrial lesions and should not be used to evaluate suspected endometrial abnormalities. For these reasons it is most important to obtain Pap tests at regular intervals. The performance characteristics of some immunohistochemical stains, fluorescence in-situ hybridization tests and immunophenotyping by flow cytometry cited in this report (if any) were determined by the Surgical Pathology Department at [facility] as part of an ongoing quality manager program and in compliance with federally mandated regulations drawn from the Clinical Laboratory Improvement Act of 1988 (CLIA '88). Some of these tests rely on the use of analyte specific reagents and are subject to specific labeling requirements by the US Food and Drug Administration. Such diagnostic tests may only be performed in a facility that is certified by the Department of Health and Human Services as a high complexity laboratory under CLIA '88. The FDA has determined that such clearance or approval is not necessary. This test is used for clinical purposes. It should not be regarded as investigational or for research. Nevertheless, federal rules concerning the medical use of analyte specific reagents require that the following disclaimer be attached to the report: This test was developed and its performance characteristics determined by the Surgical Pathology Department [facility]. It has not been cleared or approved by the U. S. Food and Drug Administration. Mariajose Reese MD LAB CYTOLOGY ORDERABL ES Final Result from Last 3 Months or Most Recently Relevant to Health Maintenance Insurance [facility] H[facility]/PPO Address: [facility] [address] [place] [address] Care Teams Assistant Store Manager Sales Relationship Specialty Start Date End Date No, Physician PCP - General 03/11/24
--- OUTSIDE RECORDS SUMMARY | 2025-04-16 09:10 | XMS_ITS | Clinical Summary ---
Author Organization [facility] Address [address] [place] [address] Care Team Providers Care Preload Supervisor Name Role Phone Unavailable Primary Care Provider Unavailabl e Allergies No known active allergies Medications Dextromethorphan -Guaifenesin (MUCINEX DM MAXIMUM STRENGTH PO) Take by mouth. Activ e mometasone (NASONEX) 50 MCG/ACT NA SUSP 2 Sprays by Nasal route daily. Use in each nostril as directed. Active acetaminophen (TYLENOL) 325 MG PO TABS Take 325 mg by mouth every 4 hours as needed. Active fluticasone (FLONASE) 50 MCG/ACT Suspension 0 6 Active Fexofenadine HCl (JOSE PO) Take by mouth. Ac tive Triamcinolone Acetonide (NASACORT ALLERGY 24HR) 55 MCG/ACT AerosolIndicatio ns:Acute sinusitis, recurrence not specified, unspecified location 1 Inhaler by Nasal route 2 times daily. 1 Bottle 1 6 Active Additional Information Patient not taking.Reported on 04/12/2017 Pseudoephedrine HCl (SUDAFED PO) Take by mouth. Active Active Problems Problem Noted Date Diagnosed Date BMI (body mass index), pediatric, 95-99% for age 0603/30/2016 S/P tonsillectomy and adenoidectomy 07/23/2009 Overview (07/23/2009): kindergarten Otitis media with effusion 07/23/2009 Overview (07/23/2009): recurrent Vascular nevus 04/27/2009 Overview (07/23/2009): Right leg; Dr. Romano saw for leg length discrepancy; RLL also a bit bigger Immunizations Immunization Administration Dates Next Due DTAP VACCINE 04/22/2003, 9,1998,1997,1998 HEP B/HIB Combined Vaccine 1998,1998 ,1998 HIB Vaccine (PRP-T) 02/16/1999 Inactivated Polio Vaccine 04/22/2003 Influenza Vaccine Nasal 07/27/2010 Influenza Vaccine greater than 3 yrs 07/24/2012 MMR Vaccine 04/22/2003,02/16/1999 OPV 1998,1998,1998 PUR FLU 3+ YRS PRES FREE QUAD IM 07/17/2015,07/10 PUR FLU INTRANASAL 07/19/2011 PUR FLU PRES FREE AGE 3+ FULL IM 08/05/2013 PUR HEP A PED ADOLES 2 DOSE IM 05/19/2015,2011 PUR HPV 3 DOSE IM GARDASIL 10/12/2012,06/12/2012 ,04/10/2012 PUR MENINGOCOCCAL IM 04/27/2009 PUR MENINGOCOCCAL MCV4O 05/19/2015 PUR TDAP 7+ YRS IM 04/27/2009 Pur Varicella Virus SQ 04/27/2009 Varicella Vaccine Live 07/27/1999 Social History Tobacco Use Types Packs/Day Years Used Date Smoking Tobacco: Never Smokeless Tobacco: Never Alcohol Use Standard Drinks/Week Comments Not Asked 0 (1 standard drink = 0.6 oz pur e alcohol) Comments No Sex and Gender Information Value Date Recorded Sex Assigned at Not on file Legal Sex Female 3:19 AM [employer] Gender Identity Not on file Sexual Orientation Not on file Last Filed Vital Signs Vital Sign Reading Time Taken Comments Blood Pressure 119/81 04/11/2019 2:01 PM CDT Pulse 104 04/11/2019 2:01 PM CDT Temperature 36.9 C (98.4 F) 04/11/2019 2:01 PM CDT Respiratory Rate 18 04/11/2019 2:01 PM CDT Oxygen Saturation 97% 04/11/2019 2:01 PM CDT Inhaled Oxygen Concentration - - Weight 84.2 kg (185 lb 11.2 oz) 04/11/2019 2:01 PM CDT Height 157.5 cm (5' 2) 04/11/2019 2:01 PM CDT Body Mass Index 33.96 04/11/2019 2:01 PM CDT Plan of Treatment Health Maintenance Due Date Last Done Comments Hepatitis C Virus (HCV) Screening 1998 DTaP/Tdap/Td Immunization (7 - Td or Tdap) 04/27/2019 04/27/2009, 04/22/2003, 02/16/1999, Additional history exists SARS-COV-2 Immunization ( season) 2024 08/27/2021, 12/09/2020, 11/11/2020 Influenza Immunization (#1) 06/09/202507/11, 08/02/2019, 07/17/2015, Additional history exists Respiratory Syncytial Virus (RSV) Immunization (Adult) (1 - 1-dose 75+ series) 2073 Hepatitis B Immunization Completed 998, 2000, 1998 Human Papillomavirus (HPV) Immunization Completed 10/12/2012, 06/12/2012, 04/10/2012 Meningococcal Immunization (ACWY) Completed 05/19/2015, 04/27/2009 Pneumococcal Immunization Combined Aged Out No longer eligible based on patient's age to complete this topic Rotavirus Immunization Aged Out No lo nger eligible based on patient's age to complete this topic
--- OUTSIDE RECORDS SUMMARY | 2025-04-16 09:10 | XMS_ITS | Data Portability ---
Author Organization [facility] Address [address] [place] [address] Assessment No assessment recorded. Plan of Treatment Reminders Order Date Submit Date Provider Last Modified By Organization Details Last Modified Time Details Appointments None record ed. Lab None record ed. Referral None record ed. Procedures None record ed. Surgeries None record ed. Imaging None record ed. Medication Orders None record ed. Patient TargetsNo targets recorded. Patient InstructionsNo instructions recorded. Reason for Referral None Reported. Medical Equipment None Reported. Medications Name Sig Start Date Stop Date Status Note LastModified by Organization Details LastModified Time amoxicillin 500 mg capsule TAKE 1 CAPSULE BY MOUTH EVERY 12 HOURS 07/30 completed Not Available Not Available Not Available fluticasone propionate 50 mcg/actuatio n nasal spray,suspen virgie SHAKE LIQUID AND USE 1 SPRAY IN EACH NOSTRIL TWICE DAILY 07/30 completed Not Available Not Available Not Available Vitals None Recorded Social History None recorded. Functional Status None recorded. Mental Status None recorded. Family History Nothing Reported. Medical History No medical history recorded. Gynecological HistoryNo gynecological history recorded. Obstetrics History GPAL:G 0 P 0 0 0 0 Immunizations Vaccine Type Date Status Note Provider Nam e and Address Organization Details Recorded Time Influenza, split virus, quadrivalent, PF 07/05/2023 completed CAROL ANN Funes null, [facility] 07/11/2023 20:39:37 Influenza, split virus, trivalent, PF 07/30/2024 completed Sandra Liang MA null, [facility] 07/30/2024 16:03:50 Past Encounters Encounter ID Performer Location Encounter Start Date Encounter Closed Date Diagnosis/Indication Diagnosis SNOMED-CT Code Diagnosis ICD10 Code Diagnosis Note [id number] Jass Navarro MD [facility] [address] [place] [address] 07/06/2023 16:29:15 07/12/2023 14:30:09 Administration of influenza vaccine [id number] Z23 [id number] Jass Navarro MD [facility] - [facility] [address] [place] [address] 07/30/2024 15:59:32 07/31/2024 10:41:45 Administration of influenza vaccine [id number] Z23 Health Concerns Section Related Observation LastModified by Organization Detai ls LastModified Time None Recorded Concern Status LastModified by Organization Details LastModified Time None Recorded Advance Directives Directive None Recorded Payers Insurance Date Sequence Insurance Name Policy Number Policy Palomares Covered Member ID Palomares Member ID Guarantor Name 07/30/[address] [facility] [id number] Nicolette Cross [id number] Nicolette Cross OBGyn Episode No OBEpisode recorded.
--- OUTSIDE RECORDS SUMMARY | 2025-04-16 09:10 | XMS_ITS | Referral Summary ---
Author Organization [facility] [place] [address] [place] [address] Care Team Providers Care Gas Meter Checker Name Role Phone No, Physician Primary Care Provider [phone] Allergies No known active allergies Medications omeprazole (PriLOSEC) 40 mg capsule Take 1 capsule (40 mg total) by mouth daily 4 Active fexofenadine (OJSE) 60 mg tablet Take by mouth Active methylPREDNISol one (MEDROL DOSEPACK) 4 mg Dosepack FOLLOW PACKAGE DIRECTIONS 4 Active Active Problems Problem Noted Date Diagnosed Date Severe obesity (BMI >= 40) 04/10/2024 Social History Tobacco Use Types Packs/Day Years [...] file Not on file Not on file Last Filed Vital Signs [...] 04/10/2024 1:24 PM CDT Plan of Treatment Not on file Procedures Procedure Name Priority Date/Time Associated Diagnosis Comments PAP WITH REFLEX TO HIGH RISK HPV Routine 04/10/2024 7:40 AM CDT from Last 3 Months or Most Recently Relevant to Health Maintenance Results * Pap with reflex to High Risk HPV and Genotyping (Cytology Component) (04/10/2024 7:40 AM CDT) Pap test 04/10/2024 7:40 AM CDT 04/10/2024 7:40 AM CDT Narrative 04/16/2024 3:40 PM CDT [facility] Department of Pathology [address] [place], [place] [id number] Final Report Note to Patients: This report [...] the details. Patient Name: PETER JUNG Address: [address] [place] [address] Gender: F : 2000 (Age: 24) Service: Location: N : [id number] [facility] #: [id number] Patient Type: [facility] SPECIMEN Taken: 04/10/2024 Received: 04/10/2024 Accessioned:: 04/12/2024 Reported: 04/16/2024 Physician(s): MD Mariajose Holloway MD Diagnosis: SOURCE OF SPECIMEN Imaged Thinprep Pap Test w/ Reflex HPV - Flag Signalman Cytologic Material: STATEMENT OF ADEQUACY - Satisfactory for evaluation; endocervical/transformation zone component present GENERAL CATEGORIZATION: - Negative for intraepithelial lesion or malignancy INTERPRETATION: - Fungal organisms present, morphologically consistent with ginger species RUFINA Newell(ASCP) Report Electronically Reviewed and Signed Out By RUFINA Newell(ASCP) 04/16/2024 15:40:26Specimen(s) Received: A: Imaged Thinprep Pap Test w/ Reflex HPV - Flag Signalman Cytologic Material Clinical History: Last Menstrual Period: [...] determined by the Surgical Pathology Department at [facility] as part of an ongoing senior quality analyst program and in compliance with federally mandated [...] characteristics determined by the Surgical Pathology Department [facility]. It has not been cleared or approved by the [place]. Food and Drug Administration. Mariajose Reese MD LAB CYTOLOGY ORDERABL ES Final Result from Last 3 Months or Most Recently Relevant to Health Maintenance Insurance [facility] CHOICE PLUS Care Teams Gas Meter Checker Relationship Specialty Start Date End Date No, Physician PCP - General 03/11/24
[2025-04-16 22:46] LABS: Alanine Aminotransferase 30 U/L (6-35); Albumin Level 5.0 g/dL (3.5-5.1); Alkaline Phosphatase 55 U/L (38-126); Anion Gap 10 mmol/L (4-12); Aspartate Amino Transferase 82 U/L (14-36); Bilirubin,Total 0.8 mg/dL (0.2-1.3); Blood Urea Nitrogen 7 mg/dL (7-17); Calcium 9.6 mg/dL (8.4-10.2); Carbon Dioxide 24 mmol/L (22-30); Chloride 104 mmol/L (98-107); Cholesterol 188 mg/dL (0-200); Estimated Glomerular Filt Rate > 60; Glucose 82 mg/dL (65-110); HDL Direct 59 mg/dL; Potassium 4.3 mmol/L (3.4-5.0); Sodium 138 mmol/L (137-145); Total Protein 8.3 g/dL (6.3-8.2); Triglycerides 91 mg/dL (<150)
[2025-04-16 23:16] LABS: Thyroid Stimulating Hormone 1.250 uIU/mL (0.465-4.680)
== END 2025-04-16 09:03 | disposition home or self-care (01) ==
LOC: ANHBWCLAB 09:04
PROVIDERS: PCP Nurse Practitioner Adult Health; Visit Provider Nurse Practitioner Adult Health
DX: Z13.9 Encounter for screening, unspecified (principal)
CPT/HCPCS: 36415; 80053; 80061; 84443